=== PATIENT | male | born 1970 | race Caucasian/White ===

== ENCOUNTER 2017-02-04 10:07 | Emergency (ER) | payer OTHER ==
[2017-02-04 10:18] VITALS: BP 97/55; PULSE 88; TEMP 97.3; BMI 22.3
--- NOTE | 2017-02-04 11:08 | PDOC ---
History of Present Illness - General Chief Complaint: Injury Stated Complaint: LACERATION ON FOREHEAD Time Seen by Provider: 02/04/17 10:51 History Source: Patient Exam Limitations: No Limitations - History of Present Illness Initial Comments: 02/04/17 11:03 Patient is a 46-year-old male from [facility], history of profound mental retardation , syndactal fing, presents emergency Department with superficial laceration to forehead patient is accompanied by staff from facility who states he was in standing position and hit his head on the walker, patient is known to hit his head frequently with his arm also known to hit his head on the walker today he sustained superficial laceration. There is no active bleeding, no open area wound is superficial and linear to mid forehead. Staff states no LOC no change in mental status, no other difficulty. Past Medical History: Denies. Allergies: No known allergies Medications: See medication list Family History: Non-contributory Social History: Denies smoking, alcohol use, or IVDU Review of Systems GENERAL/CONSTITUTIONAL: No fever or chills. No weakness. No weight change. HEAD, EYES, EARS, NOSE AND THROAT: No change in vision. No ear pain or discharge. No sore throat. CARDIOVASCULAR: No chest pain or shortness of breath. RESPIRATORY: No cough, wheezing, or hemoptysis. GASTROINTESTINAL: No nausea, vomiting, diarrhea or constipation. No rectal bleeding. GENITOURINARY: No dysuria, frequency, or change in urination. MUSCULOSKELETAL: No joint or muscle swelling or pain. No neck or back pain. SKIN: No rash or easy bruising. 2 cm linear superficial laceration to mid forehead NEUROLOGIC: No change in mental status at baseline Physical Exam: GENERAL: The patient is awake, alert, and fully oriented, in no acute distress. HEAD: 2 cm linear superficial laceration to mid forehead with no surrounding bruising, there is erythema which is patient's baseline from frequently hitting his head.. EYES: Pupils equal, round and reactive to light, extraocular movements intact, sclera anicteric, conjunctiva clear. No nystagmus ENT: Ears normal, nares patent, oropharynx clear without exudates. Moist mucous membranes. No uvula deviation NECK: Normal range of motion, supple without lymphadenopathy, JVD, or masses. LUNGS: Breath sounds equal, clear to auscultation bilaterally. No wheezes, and no crackles. HEART: Regular rate and rhythm, normal S1 and S2 without murmur, rub or gallop. SKIN: Warm, Dry, normal turgor, no rashes or lesions noted. Past History - Past Medical History Allergies/Adverse Reactions: Allergies Allergy/AdvReac Type Severity Reaction Status Date / Time No Known Allergies Allergy Verified 02/04/17 10:15 Home Medications: Ambulatory Orders Acidoph/L.bulg/Bif.b/S.thermop [Peg-Bid Caplet] 1 each PO DAILY 10/20/15 Beclomethasone Dipropionate [Qvar] 8.7 gm IH DAILY 10/20/15 Doxycycline Hyclate [Vibramycin -] 50 mg PO ONCE 10/20/15 Mv, Min #36/Iron,Carbonyl/FA [Geritol Complete Tablet] 1 each PO DAILY 10/20/15 [place]-3S/Dha/Epa/Fish Oil/D3 [Fish Oil + D3 Softgel] 1 each PO DAILY 10/20/15 Triamcinolone 0.025% Cream [Aristocort] 0 gm TP DAILY 10/20/15 Zinc Oxide 20% Topical Oint 454 gm NR DAILY 10/20/15 Other medical history: PROFOUND MRFabrizio SYNDACTYL. - Immunization History Immunization Up to Date: Yes - Suicide/Smoking/Psychosocial Hx Smoking Status: No Smoking History: Never smoked Number of Cigarettes Smoked Daily: 0 Hx Alcohol Use: No Drug/Substance Use Hx: No Substance Use Type: None *Physical Exam - Vital Signs Last Vital Signs Temp Pulse Resp BP Pulse Ox 97.3 F L 88 18 97/55 99 02/04/17 10:14 02/04/17 10:14 02/04/17 10:14 02/04/17 10:14 02/04/17 10:14 Medical Decision Making - Medical Decision Making 02/04/17 11:08 A/P: Patient with superficial laceration to mid forehead, there is no active bleeding. Wound is so superficial there is no need for sutures or repair. Bacitracin apply to area, patient with no change in mental status baseline neurological examination is stable. We'll DC patient home to return to activities. Instructions given to staff. *DC/Admit/Observation/Transfer Diagnosis at time of Disposition: Head injury, acute Qualifiers: Encounter type: initial encounter Qualified Code(s): S09.90XA - Unspecified injury of head, initial encounter; S09.90XA - Unspecified injury of head, initial encounter Forehead laceration Qualifiers: Encounter type: initial encounter Qualified Code(s): S01.81XA - Laceration without foreign body of other part of head, initial encounter; S01.81XA - Laceration without foreign body of other part of head, initial encounter - Discharge Dispostion Disposition: HOME Condition at time of disposition: Good Admit: No - Patient Instructions Printed Discharge Instructions: DI for Closed Head Injury Additional Instructions: Please keep bacitracin daily on wound, cleansed between applications Please monitor for any change in mental status, increased pain, bleeding, or any other concerns. - Post Discharge Activity Forms/Work/School Notes: Back to School
== END 2017-02-04 11:16 | disposition home or self-care (01) ==
LOC: JERFT 10:07
DX: S01.81XA Laceration without foreign body of other part of head, initial encounter (principal); W22.8XXA Striking against or struck by other objects, initial encounter; Y93.89 Activity, other specified; Y92.118 Other place in children's home and orphanage as the place of occurrence of the external cause; F73 Profound intellectual disabilities
CPT/HCPCS: 99281-25

== ENCOUNTER 2017-12-27 22:08 | Observation (INO) | payer OTHER ==
[2017-12-27 22:24] VITALS: BMI 26.0
[2017-12-27] MEDS ORDERED: DIPHTH,PERTUSS(ACELL),TET 0.5 ML DISP.SYRIN IM ONE (23:21)
--- NOTE | 2017-12-27 23:27 | PDOC ---
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 Patient is a resident at the [facility] and while he was eating dinner today became agitated and struck his head on the table. Staff with the patient states he did not lose consciousness after striking his head and he has not vomited since that time. assisted records reveal patient has not had a tetanus booster since August 2008. No recent travel or sick contacts. PAST MEDICAL HISTORY: see HPI SURGICAL HISTORY: Denies ALLERGIES: No known drug allergies REVIEW OF SYSTEMS Unable to to perform 2/2 profound mental retardation PHYSICAL EXAM General Appearance: Well-appearing, appropriately dressed. No apparent distress , no intoxication. HEENT: EOMI, PERRLA, normal ENT inspection, normal voice, TMs normal, pharynx normal. No conjunctival pallor. No photophobia, scleral icterus. Neck: Supple. Trachea midline. No tenderness, rigidity, carotid bruit, stridor , lymphadenopathy, or thyromegaly. Respiratory/Chest: Lungs CTAB. No shortness of breath, chest tenderness, respiratory distress, accessory muscle use. No crackles, rales, rhonchi, stridor , wheezing, dullness Cardiovascular: RRR. S1, S2. No JVD, murmur, bradycardia, tachycardia. Vascular Pulses: Dorsalis-Pedis (R): 2+, Dorsalis-Pedis (L): 2+ Gastrointestinal/Abdominal: Normal bowel sounds. Abdomen soft, non-distended. No tenderness or rebound tenderness. No organomegaly, pulsatile mass, guarding, hernia, hepatomegaly, splenomegaly. Lymphatic: No adenopathy, tenderness. Musculoskeletal/Extremities: Normal inspection. FROM of all extremities, normal capillary refill. Pelvis Stable. No CVA tenderness. No tenderness to extremities, pedal edema, swelling, erythema or deformity. Integumentary: Appropriate color, dry, warm. No cyanosis, erythema, jaundice or rash. 0.5 cm superficial linear laceration to left side of forehead. Neurologic: Alert. Tracks well. Appropriate mood/affect. Motor strength 5/5. No appreciable EOM palsy, facial droop or sensory deficit. Normal reflexive. Past History - Past Medical History Allergies/Adverse Reactions: Allergies Allergy/AdvReac Type Severity Reaction Status Date / Time No Known Allergies Allergy Verified 12/27/17 22:21 Home Medications: Ambulatory Orders Acidoph/L.bulg/Bif.b/S.thermop [Peg-Bid Caplet] 1 each PO DAILY 10/20/15 Beclomethasone Dipropionate [Qvar] 8.7 gm IH DAILY 10/20/15 Doxycycline Hyclate [Vibramycin -] 50 mg PO ONCE 10/20/15 Multivit-Min36/Iron/Folic Acid [Geritol Complete Tablet] 1 each PO DAILY [place]-3S/Dha/Epa/Fish Oil/D3 [Fish Oil + D3 Softgel] 1 each PO DAILY 10/20/15 Triamcinolone 0.025% Cream [Aristocort] 0 gm TP DAILY 10/20/15 Zinc Oxide 20% Topical Oint 454 gm NR DAILY 10/20/15 COPD: No Other medical history: MR, scoliosis - Immunization History Immunization Up to Date: Yes - Suicide/Smoking/Psychosocial Hx Smoking Status: No Smoking History: Never smoked Have you smoked in the past 12 months: No Number of Cigarettes Smoked Daily: 0 Information on smoking cessation initiated: No Hx Alcohol Use: No Drug/Substance Use Hx: No Substance Use Type: None *Physical Exam - Vital Signs Last Vital Signs Temp Pulse Resp BP Pulse Ox 97.8 F 81 20 152/99 99 12/27/17 22:21 12/27/17 22:21 12/27/17 22:21 12/27/17 22:21 12/27/17 22:21 Procedures - Consent Consent obtained: Verbal, From [facility] - Laceration/Wound Repair Left Anterior Frontal Wound Length: to 2.5 cm Wound Explored: clean Wound's Depth, Shape: superficial Irrigated w/ Saline: Yes Betadine Prep: No Wound Debrided: minimal Wound Repaired With: Dermabond Sterile Dressing Applied: No Splint Applied: No Sling Applied: No Progress: 09/08/18 23:27 steri-strips applied. Pt tolerated well. ED Treatment Course - LABORATORY CBC & Chemistry Diagram: 12/28/17 04:00 12/28/17 04:00 - RADIOLOGY Radiology Studies Ordered: Category Date Time Status HEAD CT WITHOUT CONTRAST [CT] Stat CT Scan 12/27/17 23:20 Ordered Medical Decision Making - Medical Decision Making 12/27/17 23:25 A/P: 47-year-old male with history of profound mental retardation with laceration to left forehead status post self-inflicted injury 0.5 cm superficial linear laceration noted to left forehead. No hematoma present No deformities noted to palpation of the skull No hemotympanum present No septal hematomas CT of head, Boostrix, laceration repair-see procedure note for details 12/28/17 02:22 CT of the head as read by imaging legislative correspondent: Very questionable petechial bleed in the high right parietal lobe. Suggest follow-up exam within the next 24 hours to demonstrate stability. I spoke with the radiologist Dr. Davenport. While he recommends repeat CT scan, he states this is not a neurosurgical emergency. It was discussed with the on- call radiologist that patient has had previous scans with hematoma in a similar area to where he seen this petechial hemorrhage. Old scans to be sent to imaging legislative correspondent for comparison. Labs *DC/Admit/Observation/Transfer Diagnosis at time of Disposition: Head injury Qualifiers: Encounter type: initial encounter Qualified Code(s): S09.90XA - Unspecified injury of head, initial encounter Forehead laceration Qualifiers: Encounter type: initial encounter Qualified Code(s): S01.81XA - Laceration without foreign body of other part of head, initial encounter - Discharge Dispostion Disposition: [facility] FAC[facility] Condition at time of disposition: Fair Decision to Admit order: Yes - Referrals - Patient Instructions - Post Discharge Activity
[2017-12-28] MEDS ORDERED: LORazepam 2 MG/ML SDV VIAL ONE (00:43)
[2017-12-28] MEDS ORDERED: MIDAZOLAM HCL 5 MG/1 ML Single Dose Vial IM ONE (01:25)
[2017-12-28] MEDS ORDERED: MIDAZOLAM HCL 2 MG/2 ML SINGLE DOSE VIAL ONE (01:34)
[2017-12-28 04:26] LABS: INR 0.94 (0.83-1.09); PROTHROMBIN TIME (PATIENT) 10.6 SEC (9.7-13.0)
[2017-12-28 04:35] LABS: ALBUMIN 3.5 g/dl (3.4-5.0); ALK PHOS 82 U/L (45-117); ANION GAP 3 MMOL/L (8-16); BILIRUBIN,TOTAL 0.4 mg/dL (0.2-1.0); BLOOD UREA NITROGEN 23 mg/dL (7-18); CALCIUM 7.9 mg/dL (8.5-10.1); CHLORIDE 105 mmol/L (98-107); CO2 33 mmol/L (21-32); CREATININE 1.1 mg/dL (0.7-1.3); GLUCOSE,RANDOM 93 mg/dL (74-106); POTASSIUM 4.8 mmol/L (3.5-5.1); SGOT/AST 32 U/L (15-37); SGPT/ALT 48 U/L (12-78); SODIUM 141 mmol/L (136-145); TOT PROT 6.6 g/dl (6.4-8.2)
[2017-12-28 06:03] LABS: BASO % 0.6 % (0-2.0); EOS % 1.5 % (0-4.5); HEMATOCRIT 46.3 % (35.4-49); HEMOGLOBIN 15.8 GM/dL (11.7-16.9); LYMPH % 26.9 % (8-40); MEAN CELL VOLUME 88.2 fl (80-96); MEAN PLT VOLUME 8.2 fl (7.5-11.1); MONO % 6.2 % (3.8-10.2); NEUT % 64.8 % (42.8-82.8); PLATELET COUNT 208 K/MM3 (134-434); RBC 5.26 M/mm3 (4.00-5.60); RDW 13.6 % (11.9-15.9); WHITE BLOOD COUNT 9.2 K/mm3 (4.0-10.0)
[2017-12-28 07:16] VITALS: TEMP 97.9
[2017-12-28 08:23] VITALS: BP 148/90; PULSE 64
--- NOTE | 2017-12-28 09:18 | PDOC ---
ED Treatment Course - LABORATORY CBC & Chemistry Diagram: 12/28/17 04:00 12/28/17 04:00 - ADDITIONAL ORDERS Additional order review: Laboratory Results 12/28/17 12/28/17 04:00 04:00 PT with INR 10.60 INR 0.94 Sodium 141 Potassium 4.8 Chloride 105 Carbon Dioxide 33 H Anion Gap 3 L BUN 23 H Creatinine 1.1 Creat Clearance w eGFR > 60 Random Glucose 93 Calcium 7.9 L Total Bilirubin 0.4 AST 32 ALT 48 Alkaline Phosphatase 82 Total Protein 6.6 Albumin 3.5 12/28/17 04:00 RBC 5.26 MCV 88.2 MCHC 34.0 RDW 13.6 MPV 8.2 Neutrophils % 64.8 Lymphocytes % 26.9 Monocytes % 6.2 Eosinophils % 1.5 Basophils % 0.6 - Medications Given in the ED: ED Medications Discontinued Medications Generic Name Dose Route Start Last Admin Trade Name Freq PRN Reason Stop Dose Admin Diphtheria/Tetanus/Acell Pertussis 0.5 ml 12/27/17 23:21 12/28/17 06:34 Boostrix - IM 12/27/17 23:22 0.5 ml .ONCE ONE Administration Lorazepam 2 mg 12/27/17 23:50 12/28/17 00:47 Ativan Injection - IM 12/27/17 23:51 2 mg ONCE ONE Administration Midazolam HCl 5 mg 12/28/17 01:25 12/28/17 01:39 Versed - IM 12/28/17 01:26 5 mg ONCE ONE Administration Progress Note - Progress Note Progress Note: I have received report from CINTHYA Soliz regarding this patient. Pt's initial chief complaint: fall with head trauma Pt's work up completed prior to sign out: labs, Head CT Pt treatment given from prior staff: Ativan and Versed Pt plan to be completed: Awaiting either repeat CT of head for comparison or re -read by in house radiologist with comparison study Dispo: Pending Medical Decision Making - Medical Decision Making A/P: 47 y/o male, severe MR, here after head [facility] night [facility] jail. Called Dr. Villanueva, in house radiologist. He will re read the head CT and compare to prior Head CT IMPRESSION (Dr. Villanueva): Compared to prior examination dated 10/20/15 and 08/19/15. No significant interval change. Right pontine, bilateral basal ganglia and punctate calcification in the right frontal high convexity again seen. Moderate volume loss and ventricular dilatation. No gross acute intracranial pathology is seen. Mild soft tissue swelling of the scalp over the right side of the occipital bone, superiorly. The calvarium is intact. SPoke with Dr. Villanueva after the read. He believes all findings are chronic without new/recent bleed. Will [facility] the patient back to [facility]. *DC/Admit/Observation/Transfer Diagnosis at time of Disposition: Head injury Qualifiers: Encounter type: initial encounter Qualified Code(s): S09.90XA - Unspecified injury of head, initial encounter Forehead laceration Qualifiers: Encounter type: initial encounter Qualified Code(s): S01.81XA - Laceration without foreign body of other part of head, initial encounter - Discharge Dispostion Disposition: [facility] Condition at time of disposition: Fair Decision to Admit order: No - Referrals - Patient Instructions - Post Discharge Activity
== END 2017-12-28 09:50 ==
LOC: JER 22:08 → JERBED 12-28 04:15
PROVIDERS: ADMIT Internal Medicine; ATTEND Internal Medicine
PROC: 0HQ1XZZ Repair Face Skin, External Approach (ICD-10-PCS; principal; 2017-12-28)
PROC: 3E023GC Introduction of Other Therapeutic Substance into Muscle, Percutaneous Approach (ICD-10-PCS; 2017-12-28)
PROC: 3E0234Z Introduction of Serum, Toxoid and Vaccine into Muscle, Percutaneous Approach (ICD-10-PCS; 2017-12-28)
DX: S01.81XA Laceration without foreign body of other part of head, initial encounter (principal); S09.90XA Unspecified injury of head, initial encounter; F73 Profound intellectual disabilities; G93.1 Anoxic brain damage, not elsewhere classified; L30.9 Dermatitis, unspecified; W22.03XA Walked into furniture, initial encounter; Y93.89 Activity, other specified; Y92.098 Other place in other non-institutional residence as the place of occurrence of the external cause
CPT/HCPCS: 12011; 36415; 70450-TC; 80053; 85025; 85610; 90471; 90715; 96372; 99281-25; G0378